=== PATIENT | male | born 1940 | race Caucasian/White ===

== ENCOUNTER 2023-09-12 14:00 | Inpatient (IN) | payer OTHER ==
[~2023-09-12] VITALS: Ht 172.7 cm; Wt 72.2 kg
[~2023-09-12 14:00] MED LIST: CEPH250S41 PO; NITR1POW XX; TAMS-35 PO
[2023-09-12] MEDS ORDERED: ACETAMINOPHEN 500 MG TAB PO ONE (14:15)
[2023-09-12] MEDS: SODIUM CHLORIDE 0.9% 1,000 ML IV ONE ×3 (14:30→23:00)
[2023-09-12 14:52] LABS: Basophils # (auto) 0 10 ^3/uL (0-0.2); Eosinophils # (auto) 0.1 10 ^3/uL (0-0.8); Eosinophils % (auto) 0.6 % (0.0-7.0); Monocytes # (auto) 1.6 10 ^3/uL (0-1.3)
[2023-09-12 14:54] LABS: Basophils % (auto) 0.2 % (0.0-2.0); Hematocrit 32.6 % (41.0-53.0); Hemoglobin 10.9 g/dL (13.5-17.5); Lymphocytes # (auto) 1.5 10 ^3/uL (0.4-5.4); Lymphocytes % (auto) 11.3 % (10.0-50.0); Mean Corpuscular Hemoglobin 26.8 pg (28.0-32.0); Mean Corpuscular Hgb Conc. 33.5 g/dL (32.0-36.0); Neutrophils # (auto) 10.3 10 ^3/uL (1.6-8.6); Neutrophils % (auto) 75.9 % (37.0-80.0); Red Blood Cells 4.07 10^6/uL (4.5-5.90); Red Cell Distribution Width 16.2 % (11.8-14.3); White Blood Cell 13.6 10^3/uL (4.4-10.8)
[2023-09-12 15:06] LABS: Albumin 3.8 g/dL (3.2-4.8); Alkaline Phosphatase 81 U/L (46-116); Anion Gap 5 (5-15); Aspartate Aminotransferase 14 U/L (13-40); BUN/Creatinine Ratio 15.7 (10.0-20.0); Blood Urea Nitrogen 17 mg/dL (9-23); Calcium 9.3 mg/dL (8.7-10.4); Carbon Dioxide 30 mmol/L (20-30); Chloride 102 mmol/L (98-107); Glucose 153 mg/dL (74-106); Lipase 40 U/L (12-53); Potassium 4.9 mmol/L (3.5-5.1); Sodium 137 mmol/L (136-145)
[2023-09-12 15:07] LABS: Bilirubin, Total 0.4 mg/dL (0.2-1.0); Total Protein 6.7 g/dL (5.7-8.2)
[2023-09-12 15:10] LABS: Alanine Aminotransferase < 9 U/L (7-40)
[2023-09-12 15:11] VITALS: PULSE 101; RESP 21; O2SAT 93
[2023-09-12 15:15] LABS: INR 1.11 (0.9-1.15); Prothrombin Time 11.6 sec (9.3-11.8)
[2023-09-12] MEDS: ACETAMINOPHEN 650 MG RECT SUPP PR ONE (15:15)
[2023-09-12 19:38] LABS: Urine Amorphous Crystal FEW /hpf (None Seen); Urine Bacteria FEW /hpf (None Seen); Urine Blood 3+ /uL (Negative); Urine Clarity Ex.Turbid (Clear); Urine Color Brown (Yellow); Urine Mucus FEW (None Seen); Urine Protein, UAD 2+ (Negative); Urine Specific Gravity 1.014 (1.001-1.035); Urine Urobilinogen Normal (Negative); Urine WBC 147 /hpf (0 - 3); Urine WBC Clumps PRESENT /hpf (None Seen); Urine pH 5.5 (5.0-9.0)
[2023-09-12 20:00] VITALS: PULSE 70; RESP 15; O2SAT 95
[2023-09-12] MEDS: ENOXAPARIN SOD 40 MG/0.4 ML SYRINGE SC ONE (21:12)
[2023-09-12] MEDS: AZITHROMYCIN 500MG/ 250ML 250 ML IV ONE (21:12)
[2023-09-12] MEDS: cefTRIAXone 1GM/50ML D5W 50 ML IV SCH (21:15)
[2023-09-12] MEDS ORDERED: ACETAMINOPHEN 325 MG TAB PO PRN (22:00)
[2023-09-12] MEDS: MELATONIN 5 MG TAB PO PRN (23:29)
[2023-09-12] MEDS: HYDROcodone-ACET 5/325MG TAB PO PRN (23:30)
[2023-09-13] MEDS: LORazepam 2MG/ML-1ML VIAL IV ONE (00:01)
[2023-09-13] MEDS: LORazepam 2MG/ML-1ML VIAL ONE (00:02)
[2023-09-13 05:49] LABS: Anion Gap 5 (5-15); Calcium 8.9 mg/dL (8.7-10.4); Carbon Dioxide 26 mmol/L (20-30); Chloride 106 mmol/L (98-107); Potassium 3.8 mmol/L (3.5-5.1); Sodium 137 mmol/L (136-145)
[2023-09-13 05:55] LABS: BUN/Creatinine Ratio 15.4 (10.0-20.0); Blood Urea Nitrogen 14 mg/dL (9-23); Glucose 116 mg/dL (74-106)
[2023-09-13 05:56] LABS: Basophils # (auto) 0 10 ^3/uL (0-0.2); Eosinophils # (auto) 0.1 10 ^3/uL (0-0.8); Monocytes # (auto) 1.1 10 ^3/uL (0-1.3)
[2023-09-13 05:59] LABS: Basophils % (auto) 0.3 % (0.0-2.0); Eosinophils % (auto) 1.3 % (0.0-7.0); Hematocrit 28.5 % (41.0-53.0); Hemoglobin 9.5 g/dL (13.5-17.5); Lymphocytes # (auto) 1.9 10 ^3/uL (0.4-5.4); Lymphocytes % (auto) 20.9 % (10.0-50.0); Mean Corpuscular Hemoglobin 26.5 pg (28.0-32.0); Mean Corpuscular Hgb Conc. 33.2 g/dL (32.0-36.0); Mean Corpuscular Volume 79.9 fL (80.0-100.0); Monocytes % (auto) 11.9 % (0.0-12.0); Neutrophils % (auto) 65.6 % (37.0-80.0); Nucleated Red Blood Cells % 0.1 %; Red Blood Cells 3.57 10^6/uL (4.5-5.90); Red Cell Distribution Width 15.9 % (11.8-14.3); White Blood Cell 9.2 10^3/uL (4.4-10.8)
[2023-09-13 07:40] VITALS: RESP 16
[2023-09-13] MEDS: PANTOPRAZOLE 40 MG/10 ML VIAL INJ IV SCH (11:27)
[2023-09-13 15:14] VITALS: BP 140/53; PULSE 79; RESP 19; TEMP 98.6; O2SAT 93
[2023-09-13] MEDS: HALOPERIDOL LACTATE 5 MG/ML INJ VIAL IM PRN (17:25)
[2023-09-13] MEDS: ALBUTEROL SULF 2.5 MG/0.5ML(0.5%) NEB SOLN NEB SCH (18:00)
[2023-09-13] MEDS: IPRATROPIUM BROM 0.5 MG/2.5ML INH SOL NEB SCH (18:00)
[2023-09-13 19:30] VITALS: PULSE 91; O2SAT 91
[2023-09-13] MEDS: AZITHROMYCIN 500MG/ 250ML 250 ML IV SCH (21:05)
[2023-09-14] VITALS (14 sets, daily range): BP systolic 100–140; BP diastolic 35–85; PULSE 60–110; RESP 14–20; TEMP 97.1–97.9; O2SAT 91–98
[2023-09-14] MEDS: LORazepam 2MG/ML-1ML VIAL IV ONE (04:22)
[2023-09-14] MEDS: ENOXAPARIN SOD 40 MG/0.4 ML SYRINGE SC SCH (09:57)
[2023-09-14 14:30] LABS: Basophils # (auto) 0 10 ^3/uL (0-0.2); Basophils % (auto) 0.7 % (0.0-2.0); Eosinophils # (auto) 0.1 10 ^3/uL (0-0.8); Hemoglobin 10.3 g/dL (13.5-17.5); Monocytes # (auto) 0.5 10 ^3/uL (0-1.3); Neutrophils # (auto) 3.3 10 ^3/uL (1.6-8.6); White Blood Cell 5.6 10^3/uL (4.4-10.8)
[2023-09-14 14:32] LABS: Eosinophils % (auto) 1.6 % (0.0-7.0); Hematocrit 31.1 % (41.0-53.0); Lymphocytes # (auto) 1.6 10 ^3/uL (0.4-5.4); Lymphocytes % (auto) 29.5 % (10.0-50.0); Mean Corpuscular Hemoglobin 26.1 pg (28.0-32.0); Mean Corpuscular Hgb Conc. 33.2 g/dL (32.0-36.0); Mean Corpuscular Volume 78.8 fL (80.0-100.0); Monocytes % (auto) 9.3 % (0.0-12.0); Neutrophils % (auto) 58.9 % (37.0-80.0); Nucleated Red Blood Cells % 0.1 %; Red Blood Cells 3.94 10^6/uL (4.5-5.90); Red Cell Distribution Width 15.8 % (11.8-14.3)
[2023-09-14 14:45] LABS: Chloride 104 mmol/L (98-107); Sodium 138 mmol/L (136-145)
[2023-09-14 14:46] LABS: Anion Gap 5 (5-15); Carbon Dioxide 29 mmol/L (20-30)
[2023-09-14 14:47] LABS: Calcium 9.2 mg/dL (8.5-10.1)
[2023-09-14 14:51] LABS: BUN/Creatinine Ratio 13.2 (10.0-20.0); Blood Urea Nitrogen 12 mg/dL (9-23); Glucose 139 mg/dL (74-106)
[2023-09-15] VITALS (15 sets, daily range): BP systolic 115–136; BP diastolic 55–90; PULSE 59–88; RESP 16–20; TEMP 97.6–98.7; O2SAT 92–100
[2023-09-15 05:30] LABS: Chloride 106 mmol/L (98-107); Potassium 3.7 mmol/L (3.5-5.1); Sodium 139 mmol/L (136-145)
[2023-09-15 05:31] LABS: Anion Gap 3 (5-15); Carbon Dioxide 30 mmol/L (20-30)
[2023-09-15 05:32] LABS: Calcium 9.2 mg/dL (8.7-10.4)
[2023-09-15 05:36] LABS: Basophils # (auto) 0 10 ^3/uL (0-0.2); Eosinophils # (auto) 0.1 10 ^3/uL (0-0.8); Eosinophils % (auto) 2.3 % (0.0-7.0); Hemoglobin 9.1 g/dL (13.5-17.5); Lymphocytes # (auto) 1.9 10 ^3/uL (0.4-5.4); Monocytes # (auto) 0.5 10 ^3/uL (0-1.3); Neutrophils # (auto) 1.2 10 ^3/uL (1.6-8.6); Nucleated Red Blood Cells % 0.1 %; Red Blood Cells 3.45 10^6/uL (4.5-5.90); White Blood Cell 3.7 10^3/uL (4.4-10.8)
[2023-09-15 05:37] LABS: BUN/Creatinine Ratio 12.8 (10.0-20.0); Blood Urea Nitrogen 10 mg/dL (9-23); Glucose 115 mg/dL (74-106)
[2023-09-15 05:41] LABS: Basophils % (auto) 0.6 % (0.0-2.0); Hematocrit 27.1 % (41.0-53.0); Lymphocytes % (auto) 51.2 % (10.0-50.0); Mean Corpuscular Hemoglobin 26.4 pg (28.0-32.0); Mean Corpuscular Hgb Conc. 33.6 g/dL (32.0-36.0); Mean Corpuscular Volume 78.5 fL (80.0-100.0); Monocytes % (auto) 13.5 % (0.0-12.0); Neutrophils % (auto) 32.4 % (37.0-80.0); Red Cell Distribution Width 15.8 % (11.8-14.3)
[2023-09-15] MEDS: NICOTINE 21MG/24 HR TOPICAL PATCH TD ONE (17:34)
[2023-09-16] VITALS (17 sets, daily range): BP systolic 112–139; BP diastolic 50–66; PULSE 68–95; RESP 16–20; TEMP 97.7–98.8; O2SAT 91–100
[2023-09-16] MEDS: NICOTINE 21MG/24 HR TOPICAL PATCH TD SCH (11:28)
[2023-09-17] VITALS (15 sets, daily range): BP systolic 116–134; BP diastolic 55–91; PULSE 74–89; RESP 16–20; TEMP 97.9–98.4; O2SAT 93–99
[2023-09-18] VITALS (12 sets, daily range): BP systolic 119–159; BP diastolic 50–72; PULSE 68–83; RESP 16–18; TEMP 98.6–98.9; O2SAT 93–100
[2023-09-18] MEDS ORDERED: ZOLP5TAB PO (13:59)
[2023-09-19] MEDS ORDERED: TAMS0.4C36 PO (11:27)
== END 2023-09-18 16:12 | disposition home or self-care (01) | DRG 698 ==
LOC: ER 14:00 → EDBD 14:00 → TELE 22:00 → TELE-WESTW 09-14 10:10
PROVIDERS: ADMIT Nurse Practitioner Family; ATTEND Internal Medicine Geriatric Medicine
DX: T83.511A Infection and inflammatory reaction due to indwelling urethral catheter, initial encounter (principal); J15.69 Pneumonia due to other Gram-negative bacteria; J15.9 Unspecified bacterial pneumonia; J98.11 Atelectasis; N30.01 Acute cystitis with hematuria; J84.9 Interstitial pulmonary disease, unspecified; R62.7 Adult failure to thrive; J98.4 Other disorders of lung; R06.03 Acute respiratory distress; N35.919 Unspecified urethral stricture, male, unspecified site; F02.80 Dementia in other diseases classified elsewhere, unspecified severity, without behavioral disturbance, psychotic disturbance, mood disturbance, and anxiety; G30.9 Alzheimer's disease, unspecified; H91.3 Deaf nonspeaking, not elsewhere classified; N40.0 Benign prostatic hyperplasia without lower urinary tract symptoms; Z79.899 Other long term (current) drug therapy; Z68.24 Body mass index [BMI] 24.0-24.9, adult
CPT/HCPCS: 36415; 70450; 71045; 71250; 80048; 80053; 81001; 83605; 83690; 83880; 84484; 85025; 85379; 85610; 87040; 87081; 87086; 87088; 87186; 93005; 94640; 96361; 96365; 96372; 97110; 97116; 97163; 97530; C9113; G0378